=== PATIENT | male | born 1945 | race Caucasian/White ===

== ENCOUNTER 2019-03-20 12:30 | Inpatient (IN) ==
[~2019-03-20 12:30] MED LIST: SODIUM CHLORIDE 0.9% 1,000 ML IV PRN
[2019-03-20 12:42] LABS: Basophils # 0.1 10*3/uL (0.0-0.2); Basophils % 0.9 % (0.0-0.8); Eosinophils # 0.2 10*3/uL (0.0-0.87); Eosinophils % 3.5 % (0.00-10.9); Hematocrit 41.7 VOL% (42.0-52.0); Hemoglobin 13.1 GM/DL (14.0-18.0); Immature Granulocytes % 0.5 %; Immature Granulocytes Absolute 0.03 #; Lymphocytes # 1.7 10*3/uL (1.4-4.0); Lymphocytes % 25.3 % (21.2-54.2); Mean Corpuscular HGB Conc 31.4 GM/DL (32-36); Mean Corpuscular Volume 100.5 FL (87-102); Mean Platelet Volume 10.7 FL (9.6-12.0); Monocytes % 5.6 % (1.7-12.7); Neutrophils % 64.2 % (38.7-73.9); Platelet Count 204 T/CUMM (130-400); Red Blood Count 4.15 MC/CUMM (3.8-5.5); Red Cell Distribution Width 13.2 % (9.3-17.3); White Blood Count 6.6 T/CUMM (4-12)
[2019-03-20 12:54] LABS: INR 0.9; Partial Thromboplastin Time 25.8 SECS (20.8-36.0)
[2019-03-20 13:03] LABS: Calcium 9.3 MG/DL (8.5-10.1); Osmolality,Calculated 281.5 MOS/KG (273-304)
[2019-03-20 13:16] LABS: Apearance,Urine CLEAR (Clear); Bacteria,Urine Occasional /HPF (Few); Bilirubin,Urine Negative (Negative); Blood, Urine Small mg/dL (Negative); Glucose,Urine (UA) Negative (Negative); Hyaline Casts,Urine 10 /LPF (0-3); Ketones,Urine 5 mg/dL (Negative); Mucus,Urine Many /LPF (Occasional); Nitrite,Urine Negative (Negative); Protein,Urine 100 MG/DL; RBC,Urine 17 /HPF (0-4); Urine Color Yellow (Yellow); Urine Specific Gravity 1.024 (1.001-1.035); Urine Urobilinogen < 2.0 EU/DL (0.2-1.0); WBC,Urine 2 /HPF (0-6)
[2019-03-24] MEDS ORDERED: PAPAVERINE 60 MG/2 ML VIAL ONE (05:09)
[2019-03-24] MEDS ORDERED: TISSUE ADHESIVE 1 EACH APPLICATOR TOP ONE (05:09)
[2019-03-24] MEDS ORDERED: VANCOMYCIN 1,000 MG VIAL ONE ×2 (05:10→08:15)
[2019-03-24] MEDS ORDERED: DIAZEPAM 5 MG TABLET PO STA (06:14)
[2019-03-24] MEDS ORDERED: FAMOTIDINE 20 MG TABLET PO STA (06:14)
[2019-03-24] MEDS ORDERED: FAMOTIDINE 20 MG TABLET ONE (06:16)
[2019-03-24] MEDS ORDERED: SUFentanil 250 MCG/5 ML AMP ONE (06:16)
[2019-03-24] MEDS ORDERED: DIAZEPAM 5 MG TABLET ONE (06:16)
[2019-03-24] MEDS ORDERED: MIDAZOLAM 10 MG/2 ML VIAL ONE (06:17)
[2019-03-24] MEDS ORDERED: ePHEDrine 50 MG/ML AMP ONE (06:17)
[2019-03-24] MEDS ORDERED: SUFentanil 50 MCG/ML AMP ONE (06:17)
[2019-03-24] MEDS ORDERED: HEPARIN/NACL 0.9% 2 UNITS/ML 500 ML IV ONE (06:18)
[2019-03-24] MEDS ORDERED: LACTATED RINGERS 1,000 ML IV SCH (06:30)
[2019-03-24] MEDS ORDERED: CEFUROXIME 1,500 MG VIAL ONE (06:45)
[2019-03-24] MEDS ORDERED: CEFUROXIME INJ 1,500 MG in SYRINGE 1 EACH IV ONE (06:46)
[2019-03-24 07:51] LABS: ABG Oxygen Saturation 99.8 % (95-100); ABG PCO2 46.3 MM HG (35-48); ABG PH 7.313 (7.35-7.45); ABG TCO2 21.1 MMOL/L (23-27); Glucose Heart Surgery 141 MG/DL (74-106); Hematocrit Heart Surgery 35.4 PERCENT (42-52); Hemoglobin Heart Surgery 11.5 G/DL (14.0-18.0); Ionized Calcium Arterial 1.22 MMOL/L (1.21-1.46); PCO2 Patient Temp Arterial 46.3 MMHG; PH Patient Temp Arterial 7.313; Patient Temperature 37 CELCIUS; Potassium Heart/CVR 4.6 MMOL/L (3.5-5.1); Sodium Heart/CVR 139 MMOL/L (135-145)
[2019-03-24 08:47] LABS: Hematocrit Heart Surgery 26.1 PERCENT (42-52); Hemoglobin Heart Surgery 8.4 G/DL (14.0-18.0); PCO2 Patient Temp Venous 36.9 MM HG; PH Patient Temp Venous 7.4; VBG Base Excess -1.6 MEQ/L (0-4); VBG HCO3 22.9 MEQ/L (24-28); VBG Oxygen Saturation 84.2 %; VBG PCO2 40.6 MMHG (41-51); VBG PH 7.371; VBG PO2 49.3 MMHG (17-40)
[2019-03-24 09:23] LABS: Hematocrit Heart Surgery 26.8 PERCENT (42-52); Hemoglobin Heart Surgery 8.6 G/DL (14.0-18.0); PCO2 Patient Temp Venous 33.4 MM HG; PH Patient Temp Venous 7.413; PO2 Patient Temp Venous 37.5 MM HG; VBG Base Excess -2.6 MEQ/L (0-4); VBG HCO3 21.9 MEQ/L (24-28); VBG Oxygen Saturation 78.2 %; VBG PCO2 36.8 MMHG (41-51); VBG PH 7.384; VBG PO2 43.1 MMHG (17-40)
[2019-03-24 09:24] LABS: Potassium Heart/CVR 6.3 MMOL/L (3.5-5.1)
[2019-03-24] MEDS ORDERED: THROMBIN TOPICAL (RECOMBINANT) 5,000 UNIT VIAL TOP ONE ×2 (09:53→09:58)
[2019-03-24 10:00] LABS: ABG Base Excess -3.9 MMOL/L (-2.5-2.5); ABG HCO3 21.2 MMOL/L (20-26); ABG Oxygen Saturation 99.8 % (95-100); ABG PCO2 37.8 MM HG (35-48); ABG PH 7.356 (7.35-7.45); ABG TCO2 19.4 MMOL/L (23-27); Glucose Heart Surgery 229 MG/DL (74-106); Hematocrit Heart Surgery 30.1 PERCENT (42-52); Hemoglobin Heart Surgery 9.7 G/DL (14.0-18.0); Ionized Calcium Arterial 1.32 MMOL/L (1.21-1.46); PCO2 Patient Temp Arterial 37.8 MMHG; PH Patient Temp Arterial 7.356; Patient Temperature 37 CELCIUS; Sodium Heart/CVR 132 MMOL/L (135-145)
[2019-03-24] MEDS ORDERED: MANNITOL 100 GM/500 ML BAG IV ONE (10:00)
[2019-03-24] MEDS ORDERED: LIDOCAINE 100 MG/5 ML SYRINGE ONE ×2 (10:01→10:53)
[2019-03-24] MEDS ORDERED: DEXTROSE 5% KCL 20 MEQ 20 MEQ/1,000 ML BAG IV ONE (10:01)
[2019-03-24] MEDS ORDERED: MAGNESIUM SULFATE 5 GM/10 ML VIAL IV ONE (10:02)
[2019-03-24] MEDS ORDERED: FUROSEMIDE 20 MG/2 ML VIAL ONE (10:02)
[2019-03-24] MEDS ORDERED: methylPREDNISolone SOD SUC 1,000 MG/8 ML VIAL ONE (10:02)
[2019-03-24] MEDS ORDERED: PROTAMINE SULFATE 50 MG/5 ML VIAL IV ONE (10:02)
[2019-03-24] MEDS ORDERED: SODIUM BICARBONATE 50 MEQ/50 ML VIAL IV ONE (10:02)
[2019-03-24] MEDS ORDERED: HEPARIN 10,000 UNIT/10 ML VIAL ONE (10:02)
[2019-03-24] MEDS ORDERED: ALBUMIN 25% 25 GM/100 ML VIAL IV ONE (10:02)
[2019-03-24] MEDS ORDERED: PROTAMINE SULFATE 250 MG/25 ML VIAL IV ONE (10:02)
[2019-03-24] MEDS ORDERED: PHENYLEPHRINE DRIP 0 MG/0 ML PREMIX IV ONE (10:10)
[2019-03-24] MEDS ORDERED: ALBUMIN 5% 12.5 GM/250 ML VIAL IV ONE (10:10)
[2019-03-24] MEDS ORDERED: POTASSIUM CHLORIDE RIDER 100 ML IV ONE (10:10)
[2019-03-24] MEDS ORDERED: POTASSIUM CHLORIDE RIDER 10 MEQ in PREMIX 1 EACH IV PRN (10:37)
[2019-03-24] MEDS ORDERED: MIDAZOLAM 2 MG/2 ML VIAL IV PRN (10:37)
[2019-03-24] MEDS ORDERED: ACETAMINOPHEN 650 MG SUPP RECTAL PRN (10:37)
[2019-03-24] MEDS ORDERED: DEXTROSE 50% 25 GM/50 ML VIAL IV PRN ×2 (10:37)
[2019-03-24] MEDS ORDERED: MAGNESIUM SULF RIDER 4 GM in PREMIX 1 EACH IV PRN (10:37)
[2019-03-24] MEDS ORDERED: CHLORHEXIDINE 4% SOLN 118 ML BOTTLE TOP PRN (10:37)
[2019-03-24] MEDS ORDERED: ONDANSETRON 4 MG/2 ML VIAL IV PRN (10:37)
[2019-03-24] MEDS ORDERED: CALCIUM CHLORIDE 1,000 MG/10 ML SYRINGE IV PRN (10:37)
[2019-03-24] MEDS: SODIUM CHLORIDE 0.45% 1,000 ML IV SCH ×3 (10:51→23:51)
[2019-03-24] MEDS ORDERED: VECURONIUM 10 MG VIAL IV ONE (10:54)
[2019-03-24] MEDS ORDERED: SODIUM CHLORIDE 0.9% 250 ML IV ONE (10:54)
[2019-03-24] MEDS ORDERED: NITROGLYCERIN DRIP 50 MG/250 ML BOTTLE IV ONE (10:54)
[2019-03-24] MEDS ORDERED: AMINOCAPROIC ACID 5,000 MG/20 ML VIAL ONE (10:54)
[2019-03-24] MEDS ORDERED: PHENYLEPHRINE DRIP 20 MG/250 ML PREMIX IV ONE (10:54)
[2019-03-24] MEDS ORDERED: CALCIUM CHLORIDE 1,000 MG/10 ML VIAL IV ONE (10:54)
[2019-03-24] MEDS ORDERED: SODIUM CHLORIDE 0.9% 1,000 ML IV ONE (10:54)
[2019-03-24] MEDS ORDERED: ETOMIDATE 40 MG/20 ML VIAL IV ONE (10:54)
[2019-03-24] MEDS ORDERED: SEVOFLURANE 1 UNIT/15 MINUTE INH ONE (10:54)
[2019-03-24] MEDS ORDERED: LACTATED RINGERS 1,000 ML IV ONE (10:54)
[2019-03-24] MEDS ORDERED: INSULIN REGULAR DRIP 100 ML IV SCH (11:00)
[2019-03-24 11:22] LABS: Basophils # 0.1 10*3/uL (0.0-0.2); Basophils % 0.7 % (0.0-0.8); Eosinophils # 0.1 10*3/uL (0.0-0.87); Eosinophils % 1.3 % (0.00-10.9); Hematocrit 31.6 VOL% (42.0-52.0); Immature Granulocytes % 0.5 %; Immature Granulocytes Absolute 0.04 #; Mean Corpuscular HGB Conc 32.3 GM/DL (32-36); Mean Platelet Volume 10.7 FL (9.6-12.0); Monocytes % 3.9 % (1.7-12.7); Neutrophils % 80.6 % (38.7-73.9); Red Cell Distribution Width 13.2 % (9.3-17.3); White Blood Count 7.6 T/CUMM (4-12)
[2019-03-24] MEDS ORDERED: ASPIRIN 325 MG TABLET PO ONE (11:22)
[2019-03-24 11:27] LABS: ABG Base Excess -2.4 MMOL/L (-2.5-2.5); ABG HCO3 22.4 MMOL/L (20-26); ABG Oxygen Saturation 98.2 % (95-100); ABG PCO2 39.7 MM HG (35-48); ABG PH 7.365 (7.35-7.45); ABG TCO2 20.6 MMOL/L (23-27); Glucose Heart Surgery 200 MG/DL (74-106); Hematocrit Heart Surgery 32.3 PERCENT (42-52); Hemoglobin 10.2 GM/DL (14.0-18.0); Hemoglobin Heart Surgery 10.4 G/DL (14.0-18.0); Platelet Count 146 T/CUMM (130-400); Red Blood Count 3.16 MC/CUMM (3.8-5.5)
[2019-03-24 11:32] LABS: PT Patient Result 11.3 SECS (9.6-12.2); Partial Thromboplastin Time 31.8 SECS (20.8-36.0)
[2019-03-24] MEDS: POTASSIUM CHLORIDE RIDER 20 MEQ in PREMIX 1 EACH IV PRN ×3 (11:39→20:04)
[2019-03-24 11:44] LABS: Blood Urea Nitrogen 12 MG/DL (7-18); Calcium 8.6 MG/DL (8.5-10.1); Estimated Glom Filtration Rate 70 ML/MIN; Glucose 198 MG/DL (74-106); Osmolality,Calculated 284.4 MOS/KG (273-304)
[2019-03-24] MEDS: ALBUMIN 5% 12.5 GM in PREMIX 1 EACH IV PRN ×3 (12:40→17:50)
[2019-03-24] MEDS: INSULIN REGULAR 100 UNIT/ML IV PRN ×2 (15:15→17:15)
[2019-03-24] MEDS: SODIUM CHLORIDE 0.9% 250 ML IV PRN ×4 (17:01→17:40)
[2019-03-24] MEDS: CEFUROXIME INJ 1,500 MG in SYRINGE 1 EACH IV SCH (17:58)
[2019-03-24 19:05] LABS: ABG HCO3 20.3 MMOL/L (20-26); ABG Oxygen Saturation 98.3 % (95-100); ABG PH 7.316 (7.35-7.45); ABG TCO2 19.3 MMOL/L (23-27); Glucose Heart Surgery 144 MG/DL (74-106); Hematocrit Heart Surgery 29.3 PERCENT (42-52); Hemoglobin Heart Surgery 9.5 G/DL (14.0-18.0); Potassium Heart/CVR 3.4 MMOL/L (3.5-5.1)
[2019-03-24] MEDS: CHLORHEXIDINE 0.12% ORAL RINSE 60 ML BOTTLE SWISH/SPIT SCH (21:25)
[2019-03-24] MEDS: MORPHINE 4 MG/1 ML VIAL IV PRN (22:44)
[2019-03-25] MEDS: SODIUM CHLORIDE 0.45% 1,000 ML IV SCH ×2 (00:29→07:31)
[2019-03-25] MEDS: MORPHINE 4 MG/1 ML VIAL IV PRN ×5 (02:05→23:13)
[2019-03-25] MEDS: MORPHINE 10 MG/1 ML VIAL IV PRN (02:58)
[2019-03-25 04:31] LABS: Basophils % 0.2 % (0.0-0.8); Hematocrit 28.3 VOL% (42.0-52.0); Immature Granulocytes % 0.4 %; Immature Granulocytes Absolute 0.05 #; Lymphocytes # 0.7 10*3/uL (1.4-4.0); Lymphocytes % 5.5 % (21.2-54.2); Mean Corpuscular HGB Conc 31.8 GM/DL (32-36); Mean Corpuscular Volume 100.4 FL (87-102); Monocytes % 3.7 % (1.7-12.7); Neutrophils % 90.2 % (38.7-73.9); Platelet Count 145 T/CUMM (130-400); Red Blood Count 2.82 MC/CUMM (3.8-5.5); Red Cell Distribution Width 13.4 % (9.3-17.3); White Blood Count 12.5 T/CUMM (4-12)
[2019-03-25 04:47] LABS: Calcium 8.2 MG/DL (8.5-10.1); Osmolality,Calculated 283.4 MOS/KG (273-304)
[2019-03-25] MEDS: MAGNESIUM SULF RIDER 2 GM in PREMIX 1 EACH IV PRN ×2 (05:05→06:47)
[2019-03-25 05:25] LABS: ABG Base Excess -3.2 MMOL/L (-2.5-2.5); ABG HCO3 21.7 MMOL/L (20-26); ABG Oxygen Saturation 98.1 % (95-100); ABG PCO2 41.4 MM HG (35-48); ABG TCO2 20.6 MMOL/L (23-27); Glucose Heart Surgery 171 MG/DL (74-106); Hematocrit Heart Surgery 28.8 PERCENT (42-52); Hemoglobin Heart Surgery 9.3 G/DL (14.0-18.0); Potassium Heart/CVR 4.2 MMOL/L (3.5-5.1)
[2019-03-25] MEDS: CEFUROXIME INJ 1,500 MG in SYRINGE 1 EACH IV SCH ×2 (05:49→18:04)
[2019-03-25] MEDS: PANTOPRAZOLE 40 MG VIAL IV SCH (08:13)
[2019-03-25] MEDS: METOPROLOL TARTRATE 25 MG TABLET PO SCH ×2 (08:13→20:43)
[2019-03-25] MEDS: FUROSEMIDE 40 MG TABLET PO SCH (08:13)
[2019-03-25] MEDS: ASPIRIN EC 325 MG TABLET PO SCH (08:13)
[2019-03-25] MEDS: CLOPIDOGREL 75 MG TABLET PO SCH (08:13)
[2019-03-25] MEDS: CHLORHEXIDINE 0.12% ORAL RINSE 60 ML BOTTLE SWISH/SPIT SCH ×2 (08:14→20:43)
[2019-03-25] MEDS: INSULIN REGULAR 100 UNIT/ML SUBCUT SCH ×4 (08:18→20:44)
[2019-03-25] MEDS ORDERED: GLUCAGON 1 MG VIAL IM PRN (09:18)
[2019-03-25] MEDS ORDERED: DEXTROSE 10% 250 ML BAG IV PRN ×2 (10:00)
[2019-03-25] MEDS: ATORVASTATIN 40 MG TABLET PO SCH (20:43)
[2019-03-25] MEDS: CALCIUM CARBONATE CHEW 500 MG TABLET PO PRN (23:13)
[2019-03-26] MEDS: INSULIN REGULAR 100 UNIT/ML SUBCUT SCH ×6 (00:44→23:29)
[2019-03-26 03:13] LABS: Basophils % 0.2 % (0.0-0.8); Hematocrit 28.9 VOL% (42.0-52.0); Hemoglobin 9.2 GM/DL (14.0-18.0); Immature Granulocytes % 0.6 %; Immature Granulocytes Absolute 0.09 #; Lymphocytes # 0.7 10*3/uL (1.4-4.0); Lymphocytes % 4.6 % (21.2-54.2); Mean Corpuscular HGB Conc 31.8 GM/DL (32-36); Mean Corpuscular Volume 100.3 FL (87-102); Mean Platelet Volume 11.5 FL (9.6-12.0); Monocytes % 5.8 % (1.7-12.7); Neutrophils % 88.8 % (38.7-73.9); Platelet Count 147 T/CUMM (130-400); Red Blood Count 2.88 MC/CUMM (3.8-5.5); Red Cell Distribution Width 13.6 % (9.3-17.3); White Blood Count 14.2 T/CUMM (4-12)
[2019-03-26 03:32] LABS: Calcium 8.1 MG/DL (8.5-10.1)
[2019-03-26 04:12] LABS: Band Neutrophils 2 % (0-10); Lymphocytes 4 % (20-55); Segmented Neutrophils 90 % (50-85)
[2019-03-26 04:14] LABS: Hypochromasia 1+; Platelet Estimate Adequate
[2019-03-26 04:15] LABS: Ovalocytes 1+; Polychromasia Few; Total Cells Counted 100
[2019-03-26] MEDS: CALCIUM CARBONATE CHEW 500 MG TABLET PO PRN ×3 (08:16→19:10)
[2019-03-26] MEDS: ASPIRIN EC 325 MG TABLET PO SCH (08:16)
[2019-03-26] MEDS: CLOPIDOGREL 75 MG TABLET PO SCH (08:17)
[2019-03-26] MEDS: PANTOPRAZOLE 40 MG VIAL IV SCH (08:18)
[2019-03-26] MEDS: METOPROLOL TARTRATE 25 MG TABLET PO SCH ×2 (08:18→23:30)
[2019-03-26] MEDS: CHLORHEXIDINE 0.12% ORAL RINSE 60 ML BOTTLE SWISH/SPIT SCH (08:18)
[2019-03-26] MEDS: FUROSEMIDE 40 MG TABLET PO SCH (08:18)
[2019-03-26] MEDS: MORPHINE 4 MG/1 ML VIAL IV PRN ×2 (13:40→19:10)
[2019-03-26] MEDS: ATORVASTATIN 40 MG TABLET PO SCH (23:30)
[2019-03-27] MEDS: CHLORHEXIDINE 0.12% ORAL RINSE 60 ML BOTTLE SWISH/SPIT SCH ×3 (01:19→22:29)
[2019-03-27] MEDS: INSULIN REGULAR 100 UNIT/ML SUBCUT SCH ×6 (01:19→22:32)
[2019-03-27] MEDS: MORPHINE 10 MG/1 ML VIAL IV PRN (04:44)
[2019-03-27 05:17] LABS: Calcium 8.7 MG/DL (8.5-10.1); Osmolality,Calculated 291.8 MOS/KG (273-304)
[2019-03-27 06:21] LABS: Basophils % 0.2 % (0.0-0.8); Eosinophils # 0.1 10*3/uL (0.0-0.87); Eosinophils % 0.7 % (0.00-10.9); Hematocrit 30.9 VOL% (42.0-52.0); Immature Granulocytes % 0.6 %; Immature Granulocytes Absolute 0.05 #; Lymphocytes # 1.4 10*3/uL (1.4-4.0); Lymphocytes % 15.4 % (21.2-54.2); Mean Corpuscular HGB Conc 32.4 GM/DL (32-36); Mean Platelet Volume 11.5 FL (9.6-12.0); Monocytes % 7.2 % (1.7-12.7); Neutrophils % 75.9 % (38.7-73.9); Platelet Count 161 T/CUMM (130-400); Red Blood Count 3.12 MC/CUMM (3.8-5.5); Red Cell Distribution Width 13.4 % (9.3-17.3); White Blood Count 8.9 T/CUMM (4-12)
[2019-03-27 06:40] LABS: Hypochromasia 1+; Ovalocytes 1+; Platelet Estimate Normal
[2019-03-27] MEDS: PANTOPRAZOLE 40 MG VIAL IV SCH (10:13)
[2019-03-27] MEDS: CHOLECALCIFEROL 1,000 UNIT TABLET PO SCH (10:14)
[2019-03-27] MEDS: FUROSEMIDE 40 MG TABLET PO SCH (10:14)
[2019-03-27] MEDS: ASPIRIN EC 325 MG TABLET PO SCH (10:14)
[2019-03-27] MEDS: TAMSULOSIN 0.4 MG CAPSULE PO SCH (10:14)
[2019-03-27] MEDS: sitaGLIPtin 100 MG TABLET PO SCH (10:15)
[2019-03-27] MEDS: CYANOCOBALAMIN 500 MCG TABLET PO SCH (10:15)
[2019-03-27] MEDS: CLOPIDOGREL 75 MG TABLET PO SCH (10:15)
[2019-03-27] MEDS: METOPROLOL TARTRATE 25 MG TABLET PO SCH ×2 (10:16→22:32)
[2019-03-27] MEDS ORDERED: LACTATED RINGERS 500 ML IV ONE (16:24)
[2019-03-27] MEDS: ATORVASTATIN 40 MG TABLET PO SCH (22:32)
[2019-03-28] MEDS: MORPHINE 4 MG/1 ML VIAL IV PRN (00:13)
[2019-03-28] MEDS ORDERED: AMIODARONE INJ 150 MG in DEXTROSE 5% 100 ML IV ONE ×2 (02:53→06:44)
[2019-03-28] MEDS ORDERED: AMIODARONE INJ 450 MG in DEXTROSE 5% 241 ML IV SCH (03:30)
[2019-03-28] MEDS: INSULIN REGULAR 100 UNIT/ML SUBCUT SCH ×7 (07:18→22:09)
[2019-03-28 07:41] LABS: Basophils % 0.4 % (0.0-0.8); Eosinophils # 0.2 10*3/uL (0.0-0.87); Eosinophils % 3.1 % (0.00-10.9); Hematocrit 31.9 VOL% (42.0-52.0); Hemoglobin 10.6 GM/DL (14.0-18.0); Immature Granulocytes % 0.5 %; Immature Granulocytes Absolute 0.04 #; Lymphocytes # 1.4 10*3/uL (1.4-4.0); Lymphocytes % 17.9 % (21.2-54.2); Mean Corpuscular HGB Conc 33.2 GM/DL (32-36); Mean Corpuscular Volume 97.3 FL (87-102); Mean Platelet Volume 11.5 FL (9.6-12.0); Monocytes % 6.9 % (1.7-12.7); Neutrophils % 71.2 % (38.7-73.9); Platelet Count 188 T/CUMM (130-400); Red Blood Count 3.28 MC/CUMM (3.8-5.5); White Blood Count 7.7 T/CUMM (4-12)
[2019-03-28 07:56] LABS: Calcium 8.3 MG/DL (8.5-10.1); Osmolality,Calculated 289.3 MOS/KG (273-304)
[2019-03-28] MEDS: TAMSULOSIN 0.4 MG CAPSULE PO SCH (09:09)
[2019-03-28] MEDS: ASPIRIN EC 325 MG TABLET PO SCH (09:09)
[2019-03-28] MEDS: FUROSEMIDE 40 MG TABLET PO SCH (09:09)
[2019-03-28] MEDS: sitaGLIPtin 100 MG TABLET PO SCH (09:09)
[2019-03-28] MEDS: CLOPIDOGREL 75 MG TABLET PO SCH (09:09)
[2019-03-28] MEDS: CYANOCOBALAMIN 500 MCG TABLET PO SCH (09:09)
[2019-03-28] MEDS: PANTOPRAZOLE 40 MG VIAL IV SCH (09:10)
[2019-03-28] MEDS: CHOLECALCIFEROL 1,000 UNIT TABLET PO SCH (09:10)
[2019-03-28] MEDS: METOPROLOL TARTRATE 25 MG TABLET PO SCH ×2 (09:10→20:47)
[2019-03-28] MEDS: AMIODARONE INJ 450 MG in DEXTROSE 5% 241 ML IV SCH (09:19)
[2019-03-28] MEDS: CHLORHEXIDINE 0.12% ORAL RINSE 60 ML BOTTLE SWISH/SPIT SCH ×2 (09:20→20:47)
[2019-03-28] MEDS ORDERED: SODIUM CHLORIDE 0.9% 1,000 ML IV PRN (11:23)
[2019-03-28] MEDS: ATORVASTATIN 40 MG TABLET PO SCH (20:47)
[2019-03-29 04:33] LABS: Basophils % 0.4 % (0.0-0.8); Eosinophils # 0.4 10*3/uL (0.0-0.87); Eosinophils % 4.6 % (0.00-10.9); Hematocrit 33.1 VOL% (42.0-52.0); Hemoglobin 10.9 GM/DL (14.0-18.0); Immature Granulocytes Absolute 0.08 #; Lymphocytes # 1.5 10*3/uL (1.4-4.0); Mean Corpuscular HGB Conc 32.9 GM/DL (32-36); Mean Corpuscular Volume 96.2 FL (87-102); Mean Platelet Volume 11.3 FL (9.6-12.0); Monocytes % 6.8 % (1.7-12.7); Neutrophils % 69.2 % (38.7-73.9); Platelet Count 210 T/CUMM (130-400); Red Blood Count 3.44 MC/CUMM (3.8-5.5); Red Cell Distribution Width 13.9 % (9.3-17.3); White Blood Count 8.2 T/CUMM (4-12)
[2019-03-29 04:56] LABS: Calcium 8.4 MG/DL (8.5-10.1); Osmolality,Calculated 286.4 MOS/KG (273-304)
[2019-03-29] MEDS: AMIODARONE INJ 450 MG in DEXTROSE 5% 241 ML IV SCH (07:03)
[2019-03-29] MEDS: AMIODARONE 200 MG TABLET PO SCH ×2 (07:45→20:48)
[2019-03-29] MEDS: CLOPIDOGREL 75 MG TABLET PO SCH (08:27)
[2019-03-29] MEDS: TAMSULOSIN 0.4 MG CAPSULE PO SCH (08:27)
[2019-03-29] MEDS: FUROSEMIDE 40 MG TABLET PO SCH (08:27)
[2019-03-29] MEDS: ASPIRIN EC 325 MG TABLET PO SCH (08:27)
[2019-03-29] MEDS: CHOLECALCIFEROL 1,000 UNIT TABLET PO SCH (08:27)
[2019-03-29] MEDS: METOPROLOL TARTRATE 25 MG TABLET PO SCH ×2 (08:27→20:49)
[2019-03-29] MEDS: CYANOCOBALAMIN 500 MCG TABLET PO SCH (08:27)
[2019-03-29] MEDS: PANTOPRAZOLE 40 MG VIAL IV SCH (08:27)
[2019-03-29] MEDS: sitaGLIPtin 100 MG TABLET PO SCH (08:27)
[2019-03-29] MEDS: CHLORHEXIDINE 0.12% ORAL RINSE 60 ML BOTTLE SWISH/SPIT SCH ×2 (08:28→20:51)
[2019-03-29] MEDS: INSULIN REGULAR 100 UNIT/ML SUBCUT SCH ×4 (08:28→20:49)
[2019-03-29] MEDS: ATORVASTATIN 40 MG TABLET PO SCH (20:49)
[2019-03-30 05:16] LABS: Basophils # 0.1 10*3/uL (0.0-0.2); Basophils % 0.6 % (0.0-0.8); Eosinophils # 0.4 10*3/uL (0.0-0.87); Eosinophils % 4.2 % (0.00-10.9); Hematocrit 33.5 VOL% (42.0-52.0); Hemoglobin 11.2 GM/DL (14.0-18.0); Immature Granulocytes % 0.9 %; Immature Granulocytes Absolute 0.09 #; Lymphocytes # 1.5 10*3/uL (1.4-4.0); Lymphocytes % 15.7 % (21.2-54.2); Mean Corpuscular HGB Conc 33.4 GM/DL (32-36); Mean Corpuscular Volume 95.4 FL (87-102); Mean Platelet Volume 10.6 FL (9.6-12.0); Monocytes % 7.2 % (1.7-12.7); Neutrophils % 71.4 % (38.7-73.9); Platelet Count 236 T/CUMM (130-400); Red Blood Count 3.51 MC/CUMM (3.8-5.5); Red Cell Distribution Width 13.6 % (9.3-17.3); White Blood Count 9.8 T/CUMM (4-12)
[2019-03-30 05:35] LABS: Calcium 8.9 MG/DL (8.5-10.1); Osmolality,Calculated 295.7 MOS/KG (273-304)
[2019-03-30] MEDS: CHOLECALCIFEROL 1,000 UNIT TABLET PO SCH (08:42)
[2019-03-30] MEDS: CYANOCOBALAMIN 500 MCG TABLET PO SCH (08:43)
[2019-03-30] MEDS: CLOPIDOGREL 75 MG TABLET PO SCH (08:44)
[2019-03-30] MEDS: FUROSEMIDE 40 MG TABLET PO SCH (08:44)
[2019-03-30] MEDS: AMIODARONE 200 MG TABLET PO SCH ×2 (08:44→21:33)
[2019-03-30] MEDS: sitaGLIPtin 100 MG TABLET PO SCH (08:44)
[2019-03-30] MEDS: TAMSULOSIN 0.4 MG CAPSULE PO SCH (08:44)
[2019-03-30] MEDS: PANTOPRAZOLE 40 MG VIAL IV SCH (08:44)
[2019-03-30] MEDS: ASPIRIN EC 325 MG TABLET PO SCH (08:44)
[2019-03-30] MEDS: METOPROLOL TARTRATE 25 MG TABLET PO SCH ×2 (08:44→21:34)
[2019-03-30] MEDS: INSULIN REGULAR 100 UNIT/ML SUBCUT SCH ×4 (08:45→21:34)
[2019-03-30] MEDS: CHLORHEXIDINE 0.12% ORAL RINSE 60 ML BOTTLE SWISH/SPIT SCH ×2 (08:54→21:39)
[2019-03-30] MEDS: ATORVASTATIN 40 MG TABLET PO SCH (21:33)
[2019-03-31 04:57] LABS: Basophils # 0.1 10*3/uL (0.0-0.2); Basophils % 0.7 % (0.0-0.8); Eosinophils # 0.5 10*3/uL (0.0-0.87); Eosinophils % 5.1 % (0.00-10.9); Hematocrit 32.2 VOL% (42.0-52.0); Hemoglobin 10.6 GM/DL (14.0-18.0); Immature Granulocytes % 0.9 %; Immature Granulocytes Absolute 0.09 #; Lymphocytes # 1.8 10*3/uL (1.4-4.0); Lymphocytes % 17.7 % (21.2-54.2); Mean Corpuscular HGB Conc 32.9 GM/DL (32-36); Mean Corpuscular Volume 95.5 FL (87-102); Mean Platelet Volume 11.2 FL (9.6-12.0); Monocytes % 7.9 % (1.7-12.7); Neutrophils % 67.7 % (38.7-73.9); Platelet Count 265 T/CUMM (130-400); Red Blood Count 3.37 MC/CUMM (3.8-5.5); Red Cell Distribution Width 13.6 % (9.3-17.3); White Blood Count 9.9 T/CUMM (4-12)
[2019-03-31 05:16] LABS: Calcium 8.7 MG/DL (8.5-10.1)
[2019-03-31] MEDS: INSULIN REGULAR 100 UNIT/ML SUBCUT SCH ×4 (09:27→20:42)
[2019-03-31] MEDS: PANTOPRAZOLE 40 MG VIAL IV SCH (09:29)
[2019-03-31] MEDS: ASPIRIN EC 325 MG TABLET PO SCH (09:30)
[2019-03-31] MEDS: TAMSULOSIN 0.4 MG CAPSULE PO SCH (09:31)
[2019-03-31] MEDS: AMIODARONE 200 MG TABLET PO SCH ×2 (09:31→20:42)
[2019-03-31] MEDS: sitaGLIPtin 100 MG TABLET PO SCH (09:32)
[2019-03-31] MEDS: FUROSEMIDE 40 MG TABLET PO SCH (09:34)
[2019-03-31] MEDS: METOPROLOL TARTRATE 25 MG TABLET PO SCH ×2 (09:35→20:42)
[2019-03-31] MEDS: CLOPIDOGREL 75 MG TABLET PO SCH (09:38)
[2019-03-31] MEDS: CYANOCOBALAMIN 500 MCG TABLET PO SCH (09:38)
[2019-03-31] MEDS: CHOLECALCIFEROL 1,000 UNIT TABLET PO SCH (09:39)
[2019-03-31] MEDS: CHLORHEXIDINE 0.12% ORAL RINSE 60 ML BOTTLE SWISH/SPIT SCH ×2 (09:40→21:37)
[2019-03-31] MEDS: ATORVASTATIN 40 MG TABLET PO SCH (20:42)
[2019-04-01 04:47] LABS: Basophils # 0.1 10*3/uL (0.0-0.2); Basophils % 0.6 % (0.0-0.8); Eosinophils # 0.4 10*3/uL (0.0-0.87); Eosinophils % 4.6 % (0.00-10.9); Hematocrit 31.7 VOL% (42.0-52.0); Hemoglobin 10.5 GM/DL (14.0-18.0); Immature Granulocytes Absolute 0.09 #; Lymphocytes # 1.5 10*3/uL (1.4-4.0); Lymphocytes % 17.2 % (21.2-54.2); Mean Corpuscular HGB Conc 33.1 GM/DL (32-36); Mean Corpuscular Volume 95.2 FL (87-102); Monocytes % 7.3 % (1.7-12.7); Neutrophils % 69.3 % (38.7-73.9); Platelet Count 285 T/CUMM (130-400); Red Blood Count 3.33 MC/CUMM (3.8-5.5); Red Cell Distribution Width 13.6 % (9.3-17.3); White Blood Count 8.9 T/CUMM (4-12)
[2019-04-01 05:15] LABS: Calcium 8.4 MG/DL (8.5-10.1); Osmolality,Calculated 283.3 MOS/KG (273-304)
[2019-04-01] MEDS: TAMSULOSIN 0.4 MG CAPSULE PO SCH (08:27)
[2019-04-01] MEDS: ASPIRIN EC 325 MG TABLET PO SCH (08:27)
[2019-04-01] MEDS: CHOLECALCIFEROL 1,000 UNIT TABLET PO SCH (08:27)
[2019-04-01] MEDS: CYANOCOBALAMIN 500 MCG TABLET PO SCH (08:27)
[2019-04-01] MEDS: CLOPIDOGREL 75 MG TABLET PO SCH (08:27)
[2019-04-01] MEDS: FUROSEMIDE 40 MG TABLET PO SCH (08:28)
[2019-04-01] MEDS: AMIODARONE 200 MG TABLET PO SCH (08:28)
[2019-04-01] MEDS: sitaGLIPtin 100 MG TABLET PO SCH (08:28)
[2019-04-01] MEDS: METOPROLOL TARTRATE 25 MG TABLET PO SCH (08:30)
[2019-04-01] MEDS: CHLORHEXIDINE 0.12% ORAL RINSE 60 ML BOTTLE SWISH/SPIT SCH (08:31)
[2019-04-01] MEDS: PANTOPRAZOLE 40 MG VIAL IV SCH (08:31)
[2019-04-01] MEDS: INSULIN REGULAR 100 UNIT/ML SUBCUT SCH (08:49)
[2019-04-01 09:00] VITALS: BP 121/69
== END 2019-04-01 10:00 | disposition home health service (06) | DRG 236 ==
LOC: N.SDSINP 03-24 05:22 → N.CVR 03-24 09:41 → N.ICU 03-25 09:06 → N.TELES 03-26 12:41
PROVIDERS: ADMIT Thoracic Surgery (Cardiothoracic Vascular Surgery); ATTEND Thoracic Surgery (Cardiothoracic Vascular Surgery)